=== PATIENT | female | born 1980 | race Caucasian/White ===

== ENCOUNTER 2018-11-21 10:21 | Inpatient (IN) | payer MEDICAID, OTHER ==
[~2018-11-21] VITALS: Ht 162.6 cm; Wt 107.5 kg
[~2018-11-21 10:21] MED LIST: ATOR10TA84 PO; METF-960 PO
[2018-11-21] MEDS ORDERED: ESCI10TA PO (11:12)
[2018-11-21] MEDS ORDERED: GABA-531 PO (11:12)
[2018-11-21 11:37] LABS: BASOPHILS % (AUTO) 0.5 % (0.0-2.0); EOSINOPHILS % (AUTO) 0.5 % (1.0-6.0); HEMATOCRIT 38.8 % (36-46); LYMPHOCYTES # (AUTO) 1.7 K/uL (1.0-4.8); LYMPHOCYTES % (AUTO) 15.3 % (22.0-44.0); MEAN CORPUSCULAR HEMOGLOBIN 30.2 pg (26.0-34.0); MEAN CORPUSCULAR HGB CONC 33.5 G/dL (31.0-37.0); MEAN CORPUSCULAR VOLUME 90 fL (80-100); MONOCYTES # (AUTO) 0.7 K/uL (0.1-1.0); NEUTROPHILS # (AUTO) 8.4 K/uL (1.8-7.7); NEUTROPHILS % (AUTO) 77.7 % (40.0-70.0); PLATELET COUNT (AUTO) 357 K/uL (150-450); RED BLOOD CELL COUNT(AUTO) 4.31 MIL/uL (4.00-5.20); RED CELL DISTRIBUTION WIDTH 14.1 % (11.5-14.5)
[2018-11-21 11:49] LABS: ANION GAP 13 mmol/L (8-16); CALCIUM, TOTAL 9.9 mg/dL (8.8-10.5); CARBON DIOXIDE 25 mmol/L (22-29); CHLORIDE 99 mmol/L (98-107); CREATININE 0.72 mg/dL (0.60-1.30); GLOMERULAR FILTR. RATE CALC > 60 mL/min (>60); GLUCOSE,RANDOM 164 mg/dL (70-110); POTASSIUM 4.2 mmol/L (3.5-5.1); SODIUM SERUM 137 mmol/L (136-145); UREA NITROGEN, BLOOD 11 mg/dL (7-18)
[2018-11-21 12:03] LABS: ALANINE AMINOTRANSFERASE 46 U/L (12-78); ALBUMIN 3.6 g/dL (3.4-5.0); ALKALINE PHOSPHATASE 85 U/L (46-116); ASPARTATE AMINOTRANSFERASE 17 U/L (15-37); BILIRUBIN,TOTAL 0.3 mg/dL (0.1-1.0); TOTAL PROTEIN, SERUM 7.9 g/dL (6.4-8.2)
[2018-11-21 13:31] LABS: AMPHET/METH SCREEN,URINE NEGATIVE (NEGATIVE); BARBITURATE SCREEN, URINE NEGATIVE (NEGATIVE); BENZODIAZEPINES SCREEN,URINE NEGATIVE (NEGATIVE); CANNABINOID SCREEN,URINE NEGATIVE (NEGATIVE); COCAINE SCREEN,URINE NEGATIVE (NEGATIVE); METHADONE SCREEN, URINE NEGATIVE (NEGATIVE); OPIATE SCREEN,URINE NEGATIVE (NEGATIVE)
[2018-11-21 13:33] LABS: PHENCYCLIDINE SCREEN,URINE NEGATIVE (NEGATIVE)
[2018-11-21 13:37] LABS: BILIRUBIN,URINE NEGATIVE (NEGATIVE); GLUCOSE, URINE (UA) 100 mg/dL (NEGATIVE); KETONES,URINE TRACE mg/dL (NEGATIVE); LEUKOCYTE ESTERASE ,URINE NEGATIVE (NEGATIVE); NITRATE,URINE NEGATIVE (NEGATIVE); OCCULT BLOOD,URINE NEGATIVE (NEGATIVE); PROTEIN,URINE NEGATIVE (NEGATIVE); UROBILINOGEN,URINE 0.2 mg/dL (<=1.0)
[2018-11-21 14:09] LABS: APPEARANCE,URINE HAZY (CLEAR)
[2018-11-21 14:18] LABS: BACTERIA,URINE None Seen /HPF (None Seen); RBC,URINE None Seen /HPF (0-2); SQUAMOUS EPITHELIAL CELL,UR Few /LPF (None Seen); WBC,URINE None Seen /HPF (0-5)
[2018-11-21] MEDS ORDERED: LORazepam 2 MG/ML VIAL ONE (16:51)
[2018-11-21] MEDS ORDERED: DiphenhydrAMINE HCL 50 MG/ML VIAL ONE (16:51)
[2018-11-21] MEDS ORDERED: HALOPERIDOL LACTATE 5 MG/ML VIAL ONE (16:51)
[2018-11-21] MEDS ORDERED: DiphenhydrAMINE HCL 50 MG/ML VIAL IM ONE (17:00)
[2018-11-21] MEDS ORDERED: LORazepam 2 MG/ML VIAL IM ONE (17:00)
[2018-11-21] MEDS ORDERED: HALOPERIDOL LACTATE 5 MG/ML VIAL IM ONE (17:00)
[2018-11-21 17:17] VITALS: BP 146/87
[2018-11-21] MEDS ORDERED: GLUCAGON,HUMAN RECOMBINANT 1 MG VIAL IM PRN (17:45)
[2018-11-21] MEDS: ATORVASTATIN CALCIUM 10 MG TABLET PO SCH (20:29)
[2018-11-21] MEDS: QUEtiapine FUMARATE 200 MG TABLET PO SCH (20:29)
[2018-11-21] MEDS: ZOLPIDEM TARTRATE 10 MG TABLET PO PRN (21:33)
[2018-11-22 04:16] VITALS: BP 140/82
[2018-11-22] MEDS: MetFORMIN HCL 500 MG TABLET PO SCH ×2 (06:43→17:16)
[2018-11-22] MEDS: HALOPERIDOL 5 MG TABLET PO PRN ×2 (10:48→17:16)
[2018-11-22] MEDS: LORazepam 2 MG TABLET PO PRN ×2 (10:48→17:17)
[2018-11-22 11:09] LABS: GLUCOMETER DEV NAME(LOC) BV3S.; GLUCOSE,POINT OF CARE 187 MG/DL (70-110)
[2018-11-22] MEDS: INSULIN LISPRO 100 UNITS/ML SQ PRN ×3 (12:09→21:49)
[2018-11-22 16:27] VITALS: BP 126/74
[2018-11-22] MEDS ORDERED: NICOTINE POLACRILEX 4 MG GUM CHEW PRN (17:30)
[2018-11-22] MEDS ORDERED: NICOTINE POLACRILEX 2 MG GUM CHEW PRN (17:45)
[2018-11-22 21:14] LABS: GLUCOMETER DEV NAME(LOC) BV3S.; GLUCOSE,POINT OF CARE 156 MG/DL (70-110)
[2018-11-22 21:14] LABS: GLUCOMETER DEV NAME(LOC) BV3S.; GLUCOSE,POINT OF CARE 192 MG/DL (70-110)
[2018-11-22] MEDS: ATORVASTATIN CALCIUM 10 MG TABLET PO SCH (21:27)
[2018-11-22] MEDS: QUEtiapine FUMARATE 200 MG TABLET PO SCH (21:27)
[2018-11-23 06:34] VITALS: BP 105/73
[2018-11-23] MEDS: MetFORMIN HCL 500 MG TABLET PO SCH ×2 (07:00→16:31)
[2018-11-23] MEDS: LORazepam 2 MG TABLET PO PRN ×2 (08:15→16:31)
[2018-11-23] MEDS: HALOPERIDOL 5 MG TABLET PO PRN ×2 (08:15→16:31)
[2018-11-23 08:32] VITALS: BP 113/76
[2018-11-23] MEDS: GuaiFENesin/D-METHORPHAN [SUGAR-FREE] 200-20MG/10 ML SYRUP UDCUP PO PRN ×2 (08:57→17:00)
[2018-11-23 09:18] LABS: CHOL/HDL RATIO 3.9 (3.9-5.7); THYROID STIMULATING HORMONE 1.16 uIU/mL (0.36-3.74)
[2018-11-23] MEDS ORDERED: NICOTINE POLACRILEX 4 MG GUM CHEW PRN (11:00)
[2018-11-23 16:30] VITALS: BP 124/79
[2018-11-23] MEDS: ATORVASTATIN CALCIUM 10 MG TABLET PO SCH (20:52)
[2018-11-23] MEDS: ZOLPIDEM TARTRATE 10 MG TABLET PO PRN (20:52)
[2018-11-23] MEDS: QUEtiapine FUMARATE 200 MG TABLET PO SCH (20:52)
[2018-11-24 02:15] VITALS: BP 136/82
[2018-11-24] MEDS: GuaiFENesin/D-METHORPHAN [SUGAR-FREE] 200-20MG/10 ML SYRUP UDCUP PO PRN ×2 (02:22→14:19)
[2018-11-24] MEDS: HALOPERIDOL 5 MG TABLET PO PRN ×3 (04:25→18:24)
[2018-11-24] MEDS: LORazepam 2 MG TABLET PO PRN ×3 (04:25→18:24)
[2018-11-24] MEDS ORDERED: NICOTINE POLACRILEX 2 MG GUM CHEW PRN (05:15)
[2018-11-24] MEDS: MetFORMIN HCL 500 MG TABLET PO SCH ×2 (07:02→18:06)
[2018-11-24] MEDS: INSULIN LISPRO 100 UNITS/ML SQ PRN ×2 (07:18→20:42)
[2018-11-24 07:19] LABS: GLUCOMETER DEV NAME(LOC) BV3S.; GLUCOSE,POINT OF CARE 157 MG/DL (70-110)
[2018-11-24 08:08] VITALS: BP 146/75
[2018-11-24] MEDS: NICOTINE POLACRILEX 4 MG GUM CHEW PRN ×2 (09:33→12:47)
[2018-11-24] MEDS: QUEtiapine FUMARATE 200 MG TABLET PO SCH ×2 (11:46→20:45)
[2018-11-24 12:24] LABS: GLUCOMETER DEV NAME(LOC) BV3S.; GLUCOSE,POINT OF CARE 132 MG/DL (70-110)
[2018-11-24 17:28] VITALS: BP 111/72
[2018-11-24 18:35] LABS: GLUCOMETER DEV NAME(LOC) BV3S.; GLUCOSE,POINT OF CARE 153 MG/DL (70-110)
[2018-11-24 20:34] LABS: GLUCOMETER DEV NAME(LOC) BV3S.; GLUCOSE,POINT OF CARE 148 MG/DL (70-110)
[2018-11-24] MEDS: ATORVASTATIN CALCIUM 10 MG TABLET PO SCH (20:45)
[2018-11-25 04:48] VITALS: BP 114/75
[2018-11-25] MEDS: NICOTINE POLACRILEX 4 MG GUM CHEW PRN ×5 (05:23→20:19)
[2018-11-25] MEDS: LORazepam 2 MG TABLET PO PRN ×2 (05:50→16:28)
[2018-11-25] MEDS: MetFORMIN HCL 500 MG TABLET PO SCH ×2 (06:16→16:51)
[2018-11-25 06:19] LABS: GLUCOMETER DEV NAME(LOC) BV3S.; GLUCOSE,POINT OF CARE 184 MG/DL (70-110)
[2018-11-25] MEDS: INSULIN LISPRO 100 UNITS/ML SQ PRN (06:42)
[2018-11-25 08:17] VITALS: BP 158/83
[2018-11-25] MEDS: QUEtiapine FUMARATE 200 MG TABLET PO SCH ×2 (09:07→20:19)
[2018-11-25 16:09] VITALS: BP 132/81
[2018-11-25 16:59] LABS: GLUCOMETER DEV NAME(LOC) BV3S.; GLUCOSE,POINT OF CARE 135 MG/DL (70-110)
[2018-11-25] MEDS: MAGNESIUM HYDROXIDE SUSPENSION 30 ML UDCUP PO PRN (19:22)
[2018-11-25] MEDS: ATORVASTATIN CALCIUM 10 MG TABLET PO SCH (20:19)
[2018-11-25] MEDS: GuaiFENesin/D-METHORPHAN [SUGAR-FREE] 200-20MG/10 ML SYRUP UDCUP PO PRN (20:47)
[2018-11-25 21:54] LABS: GLUCOMETER DEV NAME(LOC) BV3S.; GLUCOSE,POINT OF CARE 134 MG/DL (70-110)
[2018-11-25] MEDS: ZOLPIDEM TARTRATE 10 MG TABLET PO PRN (22:37)
[2018-11-26 05:50] VITALS: BP 105/72
[2018-11-26 06:14] LABS: GLUCOMETER DEV NAME(LOC) BV3S.; GLUCOSE,POINT OF CARE 178 MG/DL (70-110)
[2018-11-26] MEDS: MetFORMIN HCL 500 MG TABLET PO SCH ×2 (06:41→17:24)
[2018-11-26] MEDS: INSULIN LISPRO 100 UNITS/ML SQ PRN ×3 (06:44→21:17)
[2018-11-26] MEDS: NICOTINE POLACRILEX 4 MG GUM CHEW PRN ×3 (08:03→14:44)
[2018-11-26 08:08] VITALS: BP 115/69
[2018-11-26] MEDS: QUEtiapine FUMARATE 200 MG TABLET PO SCH ×2 (08:26→21:12)
[2018-11-26] MEDS: GuaiFENesin/D-METHORPHAN [SUGAR-FREE] 200-20MG/10 ML SYRUP UDCUP PO PRN ×2 (11:30→17:24)
[2018-11-26 11:44] LABS: GLUCOMETER DEV NAME(LOC) BV3S.; GLUCOSE,POINT OF CARE 109 MG/DL (70-110)
[2018-11-26 16:04] VITALS: BP 120/83
[2018-11-26 17:00] LABS: GLUCOMETER DEV NAME(LOC) BV3S.; GLUCOSE,POINT OF CARE 150 MG/DL (70-110)
[2018-11-26] MEDS: LORazepam 2 MG TABLET PO PRN (17:24)
[2018-11-26 20:44] LABS: GLUCOMETER DEV NAME(LOC) BV3S.; GLUCOSE,POINT OF CARE 165 MG/DL (70-110)
[2018-11-26] MEDS: ATORVASTATIN CALCIUM 10 MG TABLET PO SCH (21:12)
[2018-11-26] MEDS: MAGNESIUM HYDROXIDE SUSPENSION 30 ML UDCUP PO PRN (22:34)
[2018-11-27] MEDS: GuaiFENesin/D-METHORPHAN [SUGAR-FREE] 200-20MG/10 ML SYRUP UDCUP PO PRN (01:21)
[2018-11-27 06:06] VITALS: BP 123/70
[2018-11-27] MEDS: NICOTINE POLACRILEX 4 MG GUM CHEW PRN ×4 (06:09→16:58)
[2018-11-27 06:19] LABS: GLUCOMETER DEV NAME(LOC) BV3S.; GLUCOSE,POINT OF CARE 141 MG/DL (70-110)
[2018-11-27] MEDS: MetFORMIN HCL 500 MG TABLET PO SCH ×2 (06:32→16:57)
[2018-11-27] MEDS: INSULIN LISPRO 100 UNITS/ML SQ PRN ×2 (06:37→21:55)
[2018-11-27] MEDS: HALOPERIDOL 5 MG TABLET PO PRN ×2 (07:59→12:16)
[2018-11-27] MEDS: LORazepam 2 MG TABLET PO PRN ×2 (08:00→12:17)
[2018-11-27] MEDS: QUEtiapine FUMARATE 200 MG TABLET PO SCH ×2 (08:00→21:29)
[2018-11-27 08:06] VITALS: BP 115/57
[2018-11-27 11:55] LABS: GLUCOMETER DEV NAME(LOC) BV3S.; GLUCOSE,POINT OF CARE 140 MG/DL (70-110)
[2018-11-27 16:03] VITALS: BP 143/69
[2018-11-27 17:25] LABS: GLUCOMETER DEV NAME(LOC) BV3S.; GLUCOSE,POINT OF CARE 127 MG/DL (70-110)
[2018-11-27] MEDS: ZOLPIDEM TARTRATE 10 MG TABLET PO PRN (21:29)
[2018-11-27] MEDS: ATORVASTATIN CALCIUM 10 MG TABLET PO SCH (21:29)
[2018-11-27 21:42] LABS: GLUCOMETER DEV NAME(LOC) BV3S.; GLUCOSE,POINT OF CARE 144 MG/DL (70-110)
[2018-11-28 06:29] LABS: GLUCOMETER DEV NAME(LOC) BV3S.; GLUCOSE,POINT OF CARE 165 MG/DL (70-110)
[2018-11-28] MEDS: NICOTINE POLACRILEX 4 MG GUM CHEW PRN ×4 (06:43→18:03)
[2018-11-28] MEDS: MetFORMIN HCL 500 MG TABLET PO SCH ×2 (06:43→17:00)
[2018-11-28] MEDS: INSULIN LISPRO 100 UNITS/ML SQ PRN ×3 (06:46→17:36)
[2018-11-28 07:21] VITALS: BP 125/78
[2018-11-28] MEDS: LORazepam 2 MG TABLET PO PRN ×3 (08:17→17:00)
[2018-11-28] MEDS: HALOPERIDOL 5 MG TABLET PO PRN ×3 (08:17→18:05)
[2018-11-28 08:25] VITALS: BP 129/71
[2018-11-28] MEDS: QUEtiapine FUMARATE 200 MG TABLET PO SCH (08:39)
[2018-11-28] MEDS: GuaiFENesin/D-METHORPHAN [SUGAR-FREE] 200-20MG/10 ML SYRUP UDCUP PO PRN ×2 (08:47→21:17)
[2018-11-28] MEDS ORDERED: ACETAMINOPHEN 325 MG TABLET PO PRN (09:45)
[2018-11-28 11:14] LABS: GLUCOMETER DEV NAME(LOC) BV3S.; GLUCOSE,POINT OF CARE 147 MG/DL (70-110)
[2018-11-28] MEDS ORDERED: IBUPROFEN 600 MG TABLET PO PRN (11:30)
[2018-11-28 16:00] VITALS: BP 115/75
[2018-11-28 17:55] LABS: GLUCOMETER DEV NAME(LOC) BV3S.; GLUCOSE,POINT OF CARE 154 MG/DL (70-110)
[2018-11-28] MEDS: MAGNESIUM HYDROXIDE SUSPENSION 30 ML UDCUP PO PRN (20:24)
[2018-11-28] MEDS: ATORVASTATIN CALCIUM 10 MG TABLET PO SCH (20:27)
[2018-11-28] MEDS: QUEtiapine FUMARATE 300 MG TABLET PO SCH (20:27)
[2018-11-28] MEDS: ZOLPIDEM TARTRATE 10 MG TABLET PO PRN (21:17)
[2018-11-28 22:05] LABS: GLUCOMETER DEV NAME(LOC) BV3S.; GLUCOSE,POINT OF CARE 135 MG/DL (70-110)
[2018-11-29] MEDS: NICOTINE POLACRILEX 4 MG GUM CHEW PRN ×4 (03:49→20:47)
[2018-11-29] MEDS: LORazepam 2 MG TABLET PO PRN ×2 (03:49→23:18)
[2018-11-29] MEDS: GuaiFENesin/D-METHORPHAN [SUGAR-FREE] 200-20MG/10 ML SYRUP UDCUP PO PRN ×2 (03:49→17:53)
[2018-11-29 03:58] VITALS: BP 118/81
[2018-11-29] MEDS: MetFORMIN HCL 500 MG TABLET PO SCH ×2 (06:52→16:31)
[2018-11-29] MEDS: INSULIN LISPRO 100 UNITS/ML SQ PRN ×3 (06:57→17:23)
[2018-11-29 07:14] LABS: GLUCOMETER DEV NAME(LOC) BV3S.; GLUCOSE,POINT OF CARE 185 MG/DL (70-110)
[2018-11-29 08:08] VITALS: BP 102/56
[2018-11-29] MEDS: QUEtiapine FUMARATE 300 MG TABLET PO SCH ×2 (09:21→20:14)
[2018-11-29 11:09] LABS: GLUCOMETER DEV NAME(LOC) BV3S.; GLUCOSE,POINT OF CARE 152 MG/DL (70-110)
[2018-11-29 17:44] LABS: GLUCOMETER DEV NAME(LOC) BV3S.; GLUCOSE,POINT OF CARE 188 MG/DL (70-110)
[2018-11-29] MEDS: ATORVASTATIN CALCIUM 10 MG TABLET PO SCH (20:14)
[2018-11-29 20:39] LABS: GLUCOMETER DEV NAME(LOC) BV3S.; GLUCOSE,POINT OF CARE 135 MG/DL (70-110)
[2018-11-29] MEDS: MAGNESIUM HYDROXIDE SUSPENSION 30 ML UDCUP PO PRN (23:18)
[2018-11-30 00:19] VITALS: BP 117/79
[2018-11-30] MEDS: NICOTINE POLACRILEX 4 MG GUM CHEW PRN ×4 (01:11→21:00)
[2018-11-30] MEDS: MetFORMIN HCL 500 MG TABLET PO SCH ×2 (06:33→16:47)
[2018-11-30 06:50] LABS: GLUCOMETER DEV NAME(LOC) BV3S.; GLUCOSE,POINT OF CARE 126 MG/DL (70-110)
[2018-11-30] MEDS: LORazepam 2 MG TABLET PO PRN ×2 (08:07→20:24)
[2018-11-30] MEDS: QUEtiapine FUMARATE 300 MG TABLET PO SCH ×2 (08:07→20:12)
[2018-11-30 08:22] VITALS: BP 122/84
[2018-11-30] MEDS: HALOPERIDOL 5 MG TABLET PO PRN (09:58)
[2018-11-30 11:09] LABS: GLUCOMETER DEV NAME(LOC) BV3S.; GLUCOSE,POINT OF CARE 112 MG/DL (70-110)
[2018-11-30 16:31] VITALS: BP 121/69
[2018-11-30 18:20] LABS: GLUCOMETER DEV NAME(LOC) BV3S.; GLUCOSE,POINT OF CARE 135 MG/DL (70-110)
[2018-11-30] MEDS: ATORVASTATIN CALCIUM 10 MG TABLET PO SCH (20:12)
[2018-11-30 20:54] LABS: GLUCOMETER DEV NAME(LOC) BV3S.; GLUCOSE,POINT OF CARE 140 MG/DL (70-110)
[2018-11-30] MEDS: INSULIN LISPRO 100 UNITS/ML SQ PRN (22:52)
[2018-11-30 23:09] LABS: GLUCOMETER DEV NAME(LOC) BV3S.; GLUCOSE,POINT OF CARE 178 MG/DL (70-110)
[2018-12-01] VITALS: BP 115/77
[2018-12-01] MEDS: ZOLPIDEM TARTRATE 10 MG TABLET PO PRN ×2 (00:08→21:04)
[2018-12-01] MEDS: LORazepam 2 MG TABLET PO PRN ×2 (07:12→17:07)
[2018-12-01] MEDS: MetFORMIN HCL 500 MG TABLET PO SCH ×2 (07:12→17:07)
[2018-12-01] MEDS: INSULIN LISPRO 100 UNITS/ML SQ PRN ×4 (07:14→22:02)
[2018-12-01 07:24] LABS: GLUCOMETER DEV NAME(LOC) BV3S.; GLUCOSE,POINT OF CARE 187 MG/DL (70-110)
[2018-12-01] MEDS: QUEtiapine FUMARATE 300 MG TABLET PO SCH ×2 (08:19→21:04)
[2018-12-01 08:53] VITALS: BP 120/68
[2018-12-01] MEDS: NICOTINE POLACRILEX 4 MG GUM CHEW PRN ×2 (08:57→19:15)
[2018-12-01] MEDS: GuaiFENesin/D-METHORPHAN [SUGAR-FREE] 200-20MG/10 ML SYRUP UDCUP PO PRN (08:57)
[2018-12-01 12:30] LABS: GLUCOMETER DEV NAME(LOC) BV3S.; GLUCOSE,POINT OF CARE 145 MG/DL (70-110)
[2018-12-01] MEDS: HALOPERIDOL 5 MG TABLET PO PRN (12:55)
[2018-12-01 16:25] VITALS: BP 140/84
[2018-12-01 17:34] LABS: GLUCOMETER DEV NAME(LOC) BV3S.; GLUCOSE,POINT OF CARE 164 MG/DL (70-110)
[2018-12-01 20:59] LABS: GLUCOMETER DEV NAME(LOC) BV3S.; GLUCOSE,POINT OF CARE 156 MG/DL (70-110)
[2018-12-01] MEDS: ATORVASTATIN CALCIUM 10 MG TABLET PO SCH (21:04)
[2018-12-02] MEDS: NICOTINE POLACRILEX 4 MG GUM CHEW PRN ×3 (04:58→15:50)
[2018-12-02] MEDS: GuaiFENesin/D-METHORPHAN [SUGAR-FREE] 200-20MG/10 ML SYRUP UDCUP PO PRN (04:58)
[2018-12-02 05:47] VITALS: BP 109/62
[2018-12-02] MEDS: MetFORMIN HCL 500 MG TABLET PO SCH ×2 (07:01→17:10)
[2018-12-02] MEDS: INSULIN LISPRO 100 UNITS/ML SQ PRN ×4 (07:09→21:02)
[2018-12-02 07:19] LABS: GLUCOMETER DEV NAME(LOC) BV3S.; GLUCOSE,POINT OF CARE 178 MG/DL (70-110)
[2018-12-02 08:12] VITALS: BP 119/62
[2018-12-02] MEDS: HALOPERIDOL 5 MG TABLET PO PRN ×2 (08:25→15:51)
[2018-12-02] MEDS: LORazepam 2 MG TABLET PO PRN ×2 (08:25→20:43)
[2018-12-02] MEDS: QUEtiapine FUMARATE 300 MG TABLET PO SCH ×2 (08:25→20:43)
[2018-12-02 11:14] LABS: GLUCOMETER DEV NAME(LOC) BV3S.; GLUCOSE,POINT OF CARE 185 MG/DL (70-110)
[2018-12-02 17:09] LABS: GLUCOMETER DEV NAME(LOC) BV3S.; GLUCOSE,POINT OF CARE 162 MG/DL (70-110)
[2018-12-02 17:30] VITALS: BP 133/81
[2018-12-02] MEDS: ATORVASTATIN CALCIUM 10 MG TABLET PO SCH (20:43)
[2018-12-02 21:32] LABS: GLUCOMETER DEV NAME(LOC) BV3S.; GLUCOSE,POINT OF CARE 166 MG/DL (70-110)
[2018-12-03 00:19] VITALS: BP 125/86
[2018-12-03] MEDS: HALOPERIDOL 5 MG TABLET PO PRN ×3 (03:07→21:13)
[2018-12-03] MEDS: LORazepam 2 MG TABLET PO PRN ×3 (03:07→21:13)
[2018-12-03] MEDS: NICOTINE POLACRILEX 4 MG GUM CHEW PRN ×2 (03:07→08:39)
[2018-12-03 06:24] LABS: GLUCOMETER DEV NAME(LOC) BV3S.; GLUCOSE,POINT OF CARE 158 MG/DL (70-110)
[2018-12-03] MEDS: MetFORMIN HCL 500 MG TABLET PO SCH ×2 (06:47→17:09)
[2018-12-03] MEDS: INSULIN LISPRO 100 UNITS/ML SQ PRN ×3 (06:51→21:53)
[2018-12-03 08:09] VITALS: BP 125/80
[2018-12-03] MEDS: QUEtiapine FUMARATE 300 MG TABLET PO SCH ×2 (08:52→20:09)
[2018-12-03] MEDS: DIVALPROEX SODIUM 500 MG DR TABLET PO SCH ×2 (10:00→20:09)
[2018-12-03 16:39] VITALS: BP 120/76
[2018-12-03 17:20] LABS: GLUCOMETER DEV NAME(LOC) BV3S.; GLUCOSE,POINT OF CARE 188 MG/DL (70-110)
[2018-12-03] MEDS: ATORVASTATIN CALCIUM 10 MG TABLET PO SCH (20:10)
[2018-12-03] MEDS: ZOLPIDEM TARTRATE 10 MG TABLET PO PRN (21:51)
[2018-12-04 00:18] VITALS: BP 105/60
[2018-12-04 00:54] LABS: GLUCOMETER DEV NAME(LOC) BV3S.; GLUCOSE,POINT OF CARE 158 MG/DL (70-110)
[2018-12-04] MEDS: HALOPERIDOL 5 MG TABLET PO PRN ×3 (01:15→18:24)
[2018-12-04] MEDS: LORazepam 2 MG TABLET PO PRN ×4 (01:15→23:44)
[2018-12-04] MEDS: NICOTINE POLACRILEX 4 MG GUM CHEW PRN ×3 (06:02→14:08)
[2018-12-04 06:20] LABS: GLUCOMETER DEV NAME(LOC) BV3S.; GLUCOSE,POINT OF CARE 152 MG/DL (70-110)
[2018-12-04] MEDS: MetFORMIN HCL 500 MG TABLET PO SCH ×2 (06:35→16:22)
[2018-12-04] MEDS: INSULIN LISPRO 100 UNITS/ML SQ PRN ×4 (06:36→21:15)
[2018-12-04 08:16] VITALS: BP 140/85
[2018-12-04] MEDS: DIVALPROEX SODIUM 500 MG DR TABLET PO SCH ×2 (08:45→21:12)
[2018-12-04] MEDS: QUEtiapine FUMARATE 300 MG TABLET PO SCH ×2 (08:45→21:11)
[2018-12-04 11:15] LABS: GLUCOMETER DEV NAME(LOC) BV3S.; GLUCOSE,POINT OF CARE 162 MG/DL (70-110)
[2018-12-04 16:32] VITALS: BP 131/73
[2018-12-04 17:35] LABS: GLUCOMETER DEV NAME(LOC) BV3S.; GLUCOSE,POINT OF CARE 163 MG/DL (70-110)
[2018-12-04] MEDS: ATORVASTATIN CALCIUM 10 MG TABLET PO SCH (21:11)
[2018-12-04 21:27] LABS: GLUCOMETER DEV NAME(LOC) BV3N.; GLUCOSE,POINT OF CARE 165 MG/DL (70-110)
[2018-12-04] MEDS: ZOLPIDEM TARTRATE 10 MG TABLET PO PRN (22:23)
[2018-12-05 00:18] VITALS: BP 103/81
[2018-12-05 06:25] LABS: GLUCOMETER DEV NAME(LOC) BV3S.; GLUCOSE,POINT OF CARE 142 MG/DL (70-110)
[2018-12-05] MEDS: MetFORMIN HCL 500 MG TABLET PO SCH (06:41)
[2018-12-05] MEDS: INSULIN LISPRO 100 UNITS/ML SQ PRN (06:43)
[2018-12-05 08:10] VITALS: BP 100/50
[2018-12-05] MEDS: QUEtiapine FUMARATE 300 MG TABLET PO SCH (08:19)
[2018-12-05] MEDS: DIVALPROEX SODIUM 500 MG DR TABLET PO SCH (08:19)
[2018-12-05] MEDS: NICOTINE POLACRILEX 4 MG GUM CHEW PRN (08:20)
[2018-12-05] MEDS ORDERED: QUET300T18 PO (09:16)
[2018-12-05] MEDS ORDERED: DIVA-78 PO ×2 (09:16→09:43)
[2018-12-05] MEDS ORDERED: QUET300T2 PO (09:43)
[2018-12-05 11:50] LABS: GLUCOMETER DEV NAME(LOC) BV3S.; GLUCOSE,POINT OF CARE 127 MG/DL (70-110)
== END 2018-12-05 12:15 | disposition home or self-care (01) | DRG 750 ==
LOC: EMS 10:21 → B2S 14:25 → EMS 15:00 → B3A 18:59
DX: F25.0 Schizoaffective disorder, bipolar type (principal); E11.9 Type 2 diabetes mellitus without complications; E78.5 Hyperlipidemia, unspecified; F60.0 Paranoid personality disorder; F41.9 Anxiety disorder, unspecified; F17.210 Nicotine dependence, cigarettes, uncomplicated; Z79.899 Other long term (current) drug therapy
CPT/HCPCS: 80074; 83036; 84443; G0480; J1200; J1630; J2060

== ENCOUNTER 2019-01-24 02:29 | Inpatient (IN) | payer MEDICAID, OTHER ==
[~2019-01-24] VITALS: Ht 165.1 cm; Wt 106.6 kg
[~2019-01-24 02:29] MED LIST changes: +DIVA-78 PO; +QUET300T18 PO; +QUET300T2 PO
[2019-01-24 04:14] LABS: EOSINOPHILS % (AUTO) 3.4 % (1.0-6.0); HEMATOCRIT 41.7 % (36-46); HEMOGLOBIN 13.9 g/dL (12.0-16.0); LYMPHOCYTES # (AUTO) 3.2 K/uL (1.0-4.8); LYMPHOCYTES % (AUTO) 34.2 % (22.0-44.0); MEAN CORPUSCULAR HEMOGLOBIN 30.3 pg (26.0-34.0); MEAN CORPUSCULAR HGB CONC 33.4 G/dL (31.0-37.0); MEAN CORPUSCULAR VOLUME 91 fL (80-100); MONOCYTES # (AUTO) 0.6 K/uL (0.1-1.0); MONOCYTES % (AUTO) 6.6 % (2.0-9.0); NEUTROPHILS # (AUTO) 5.1 K/uL (1.8-7.7); NEUTROPHILS % (AUTO) 54.8 % (40.0-70.0); PLATELET COUNT (AUTO) 391 K/uL (150-450); RED BLOOD CELL COUNT(AUTO) 4.59 MIL/uL (4.00-5.20); RED CELL DISTRIBUTION WIDTH 13.6 % (11.5-14.5)
[2019-01-24 04:19] LABS: AMPHET/METH SCREEN,URINE NEGATIVE (NEGATIVE); BARBITURATE SCREEN, URINE NEGATIVE (NEGATIVE); BENZODIAZEPINES SCREEN,URINE NEGATIVE (NEGATIVE); CANNABINOID SCREEN,URINE NEGATIVE (NEGATIVE); COCAINE SCREEN,URINE NEGATIVE (NEGATIVE); METHADONE SCREEN, URINE NEGATIVE (NEGATIVE); OPIATE SCREEN,URINE NEGATIVE (NEGATIVE)
[2019-01-24 04:19] LABS: ANION GAP 7 mmol/L (8-16); CALCIUM, TOTAL 9.2 mg/dL (8.8-10.5); CARBON DIOXIDE 32 mmol/L (22-29); CHLORIDE 101 mmol/L (98-107); CREATININE 0.84 mg/dL (0.60-1.30); GLOMERULAR FILTR. RATE CALC > 60 mL/min (>60); GLUCOSE,RANDOM 173 mg/dL (70-110); POTASSIUM 4.7 mmol/L (3.5-5.1); SODIUM SERUM 140 mmol/L (136-145); UREA NITROGEN, BLOOD 12 mg/dL (7-18)
[2019-01-24 04:21] LABS: PHENCYCLIDINE SCREEN,URINE NEGATIVE (NEGATIVE)
[2019-01-24 04:29] LABS: GLUCOSE,POINT OF CARE 165 MG/DL (70-110)
[2019-01-24 04:33] LABS: ALANINE AMINOTRANSFERASE 20 U/L (12-78); ALBUMIN 3.6 g/dL (3.4-5.0); ALKALINE PHOSPHATASE 82 U/L (46-116); ASPARTATE AMINOTRANSFERASE 7 U/L (15-37); BILIRUBIN,TOTAL 0.4 mg/dL (0.1-1.0); HCG,QUANTITATIVE < 1 mIU/mL (0-6); TOTAL PROTEIN, SERUM 8.2 g/dL (6.4-8.2)
[2019-01-24] MEDS ORDERED: LORazepam 2 MG TABLET PO ONE (04:45)
[2019-01-24] MEDS ORDERED: HALOPERIDOL 5 MG TABLET PO ONE (04:45)
[2019-01-24] MEDS ORDERED: DiphenhydrAMINE HCL 50 MG/ML VIAL IM ONE (05:00)
[2019-01-24 09:29] LABS: GLUCOMETER DEV NAME(LOC) BV3S.; GLUCOSE,POINT OF CARE 147 MG/DL (70-110)
[2019-01-24] MEDS ORDERED: ALBUTEROL SULFATE HFA 90 MCG/PUFF 8 GM INHALER IH PRN (09:30)
[2019-01-24] MEDS ORDERED: CloNIDine HCL 0.1 MG TABLET PO PRN (09:30)
[2019-01-24] MEDS ORDERED: DOCUSATE SODIUM 100 MG CAPSULE PO PRN (09:30)
[2019-01-24] MEDS ORDERED: NICOTINE 14 MG/24 HOUR PATCH TD PRN (09:30)
[2019-01-24] MEDS ORDERED: ONDANSETRON HCL 4 MG TABLET PO PRN (09:30)
[2019-01-24] MEDS ORDERED: GuaiFENesin/D-METHORPHAN [SUGAR-FREE] 200-20MG/10 ML SYRUP UDCUP PO PRN (09:30)
[2019-01-24] MEDS ORDERED: PETROLATUM,WHITE 28 GM JELLY TP PRN (09:30)
[2019-01-24] MEDS ORDERED: MAGNESIUM HYDROXIDE SUSPENSION 30 ML UDCUP PO PRN (09:30)
[2019-01-24] MEDS ORDERED: MAG HYDROX/AL HYDROX/SIMETH ES 30 ML SUSPENSION UDCUP PO PRN (09:30)
[2019-01-24] MEDS ORDERED: LOPERAMIDE HCL 2 MG CAPSULE PO PRN (09:30)
[2019-01-24] MEDS ORDERED: ACETAMINOPHEN 325 MG TABLET PO PRN (09:30)
[2019-01-24 10:15] VITALS: BP 125/75
[2019-01-24] MEDS ORDERED: -PHARMACY VACCINE NOTE- MISC ONE (12:00)
[2019-01-24] MEDS: OLANZapine 5 MG TABLET PO SCH ×2 (13:17→20:15)
[2019-01-24] MEDS: DIVALPROEX SODIUM 500 MG DR TABLET PO SCH ×2 (13:17→20:15)
[2019-01-24] MEDS: LORazepam 2 MG TABLET PO PRN ×2 (15:26→15:52)
[2019-01-24] MEDS: HALOPERIDOL 5 MG TABLET PO PRN (15:51)
[2019-01-24 16:22] VITALS: BP 102/62
[2019-01-24] MEDS: MetFORMIN HCL 500 MG TABLET PO SCH (17:17)
[2019-01-24] MEDS: HydrOXYzine PAMOATE 50 MG CAPSULE PO SCH (20:46)
[2019-01-24] MEDS: ATORVASTATIN CALCIUM 10 MG TABLET PO SCH (20:47)
[2019-01-25 00:05] VITALS: BP 112/78
[2019-01-25] MEDS: ZOLPIDEM TARTRATE 10 MG TABLET PO PRN ×2 (00:14→21:02)
[2019-01-25] MEDS: MetFORMIN HCL 500 MG TABLET PO SCH ×2 (06:46→16:01)
[2019-01-25 07:58] LABS: BASOPHILS % (AUTO) 0.7 % (0.0-2.0); EOSINOPHILS % (AUTO) 3.1 % (1.0-6.0); HEMATOCRIT 41.6 % (36-46); HEMOGLOBIN 13.6 g/dL (12.0-16.0); LYMPHOCYTES # (AUTO) 2.9 K/uL (1.0-4.8); LYMPHOCYTES % (AUTO) 33.8 % (22.0-44.0); MEAN CORPUSCULAR HEMOGLOBIN 29.8 pg (26.0-34.0); MEAN CORPUSCULAR HGB CONC 32.7 G/dL (31.0-37.0); MEAN CORPUSCULAR VOLUME 91 fL (80-100); MONOCYTES # (AUTO) 0.5 K/uL (0.1-1.0); NEUTROPHILS # (AUTO) 4.9 K/uL (1.8-7.7); NEUTROPHILS % (AUTO) 56.4 % (40.0-70.0); PLATELET COUNT (AUTO) 386 K/uL (150-450); RED BLOOD CELL COUNT(AUTO) 4.55 MIL/uL (4.00-5.20); RED CELL DISTRIBUTION WIDTH 13.7 % (11.5-14.5)
[2019-01-25 08:15] LABS: HEMOGLOBIN A1C 7.7 % (4.5-6.2)
[2019-01-25 08:28] LABS: ALANINE AMINOTRANSFERASE 19 U/L (12-78); ALBUMIN 3.1 g/dL (3.4-5.0); ALKALINE PHOSPHATASE 68 U/L (46-116); ANION GAP 6 mmol/L (8-16); ASPARTATE AMINOTRANSFERASE 8 U/L (15-37); BILIRUBIN,TOTAL 0.3 mg/dL (0.1-1.0); CARBON DIOXIDE 30 mmol/L (22-29); CHLORIDE 101 mmol/L (98-107); CHOL/HDL RATIO 5.1 (3.9-5.7); CHOLESTEROL 224 mg/dL (131-200); CREATININE 0.71 mg/dL (0.60-1.30); GLOMERULAR FILTR. RATE CALC > 60 mL/min (>60); GLUCOSE,RANDOM 148 mg/dL (70-110); HDL CHOLESTEROL 44 mg/dL (40-60); LDL CHOL (CALC.) 134 mg/dL (0-130); POTASSIUM 4.3 mmol/L (3.5-5.1); SODIUM SERUM 137 mmol/L (136-145); TOTAL PROTEIN, SERUM 7.6 g/dL (6.4-8.2); TRIGLYCERIDES 228 mg/dL (15-150); UREA NITROGEN, BLOOD 14 mg/dL (7-18)
[2019-01-25 08:30] VITALS: BP 130/70
[2019-01-25] MEDS: DIVALPROEX SODIUM 500 MG DR TABLET PO SCH ×2 (08:50→20:21)
[2019-01-25] MEDS: OLANZapine 5 MG TABLET PO SCH ×2 (08:50→20:21)
[2019-01-25] MEDS: HALOPERIDOL 5 MG TABLET PO PRN ×2 (09:46→16:02)
[2019-01-25] MEDS: LORazepam 2 MG TABLET PO PRN ×2 (09:46→16:01)
[2019-01-25] MEDS: IBUPROFEN 400 MG TABLET PO PRN (10:03)
[2019-01-25] MEDS ORDERED: FLUTICASONE PROPIONATE 50 MCG/SPRAY 16 GM NASAL SPRAY NASAL SCH (12:45)
[2019-01-25] MEDS: OMEGA-3/DHA/EPA/FISH OIL 1,000 MG CAPSULE PO SCH (13:56)
[2019-01-25] MEDS: FLUTICASONE PROPIONATE 50 MCG/SPRAY 16 GM NASAL SPRAY NASAL SCH (16:00)
[2019-01-25 16:12] VITALS: BP 139/70
[2019-01-25] MEDS: ATORVASTATIN CALCIUM 10 MG TABLET PO SCH (20:21)
[2019-01-25] MEDS: HydrOXYzine PAMOATE 50 MG CAPSULE PO SCH (20:21)
[2019-01-26 02:15] VITALS: BP 117/86
[2019-01-26] MEDS: MetFORMIN HCL 500 MG TABLET PO SCH ×2 (06:58→16:56)
[2019-01-26 08:11] VITALS: BP 108/77
[2019-01-26] MEDS: DIVALPROEX SODIUM 500 MG DR TABLET PO SCH ×2 (09:00→20:31)
[2019-01-26] MEDS: OLANZapine 5 MG TABLET PO SCH ×2 (09:00→20:31)
[2019-01-26] MEDS: OMEGA-3/DHA/EPA/FISH OIL 1,000 MG CAPSULE PO SCH (09:01)
[2019-01-26] MEDS: FLUTICASONE PROPIONATE 50 MCG/SPRAY 16 GM NASAL SPRAY NASAL SCH (09:01)
[2019-01-26] MEDS: HALOPERIDOL 5 MG TABLET PO PRN ×2 (09:19→18:21)
[2019-01-26] MEDS: LORazepam 2 MG TABLET PO PRN ×2 (09:19→18:21)
[2019-01-26 16:12] VITALS: BP 127/61
[2019-01-26] MEDS: HydrOXYzine PAMOATE 50 MG CAPSULE PO SCH (20:31)
[2019-01-26] MEDS: ATORVASTATIN CALCIUM 10 MG TABLET PO SCH (20:31)
[2019-01-27 03:05] VITALS: BP 132/78
[2019-01-27] MEDS: LORazepam 2 MG TABLET PO PRN ×3 (04:03→17:12)
[2019-01-27] MEDS: HALOPERIDOL 5 MG TABLET PO PRN ×3 (04:03→17:12)
[2019-01-27] MEDS: MetFORMIN HCL 500 MG TABLET PO SCH ×2 (06:47→17:12)
[2019-01-27] MEDS: OMEGA-3/DHA/EPA/FISH OIL 1,000 MG CAPSULE PO SCH (08:13)
[2019-01-27] MEDS: OLANZapine 5 MG TABLET PO SCH ×2 (08:13→21:16)
[2019-01-27] MEDS: DIVALPROEX SODIUM 500 MG DR TABLET PO SCH ×2 (08:13→21:16)
[2019-01-27 08:37] VITALS: BP 116/77
[2019-01-27] MEDS: FLUTICASONE PROPIONATE 50 MCG/SPRAY 16 GM NASAL SPRAY NASAL SCH (08:37)
[2019-01-27] MEDS: NICOTINE POLACRILEX 2 MG LOZENGE PO PRN (10:57)
[2019-01-27 16:25] VITALS: BP 128/70
[2019-01-27] MEDS: ATORVASTATIN CALCIUM 10 MG TABLET PO SCH (21:16)
[2019-01-27] MEDS: HydrOXYzine PAMOATE 50 MG CAPSULE PO SCH (21:16)
[2019-01-28 00:05] VITALS: BP 124/82
[2019-01-28 01:55] VITALS: BP 128/80
[2019-01-28] MEDS: ZOLPIDEM TARTRATE 10 MG TABLET PO PRN (01:55)
[2019-01-28] MEDS: IBUPROFEN 400 MG TABLET PO PRN (01:55)
[2019-01-28] MEDS: MetFORMIN HCL 500 MG TABLET PO SCH ×2 (06:44→16:13)
[2019-01-28] MEDS: FLUTICASONE PROPIONATE 50 MCG/SPRAY 16 GM NASAL SPRAY NASAL SCH (08:16)
[2019-01-28] MEDS: DIVALPROEX SODIUM 500 MG DR TABLET PO SCH ×2 (08:17→20:42)
[2019-01-28] MEDS: OMEGA-3/DHA/EPA/FISH OIL 1,000 MG CAPSULE PO SCH (08:17)
[2019-01-28] MEDS: OLANZapine 5 MG TABLET PO SCH (08:17)
[2019-01-28 08:30] VITALS: BP 106/62
[2019-01-28 11:20] VITALS: BP 134/74
[2019-01-28] MEDS: LORazepam 2 MG TABLET PO PRN (13:18)
[2019-01-28] MEDS: HALOPERIDOL 5 MG TABLET PO PRN (13:18)
[2019-01-28] MEDS: NICOTINE POLACRILEX 2 MG LOZENGE PO PRN (14:20)
[2019-01-28] MEDS: OLANZapine 10 MG TABLET PO SCH (20:42)
[2019-01-28] MEDS: HydrOXYzine PAMOATE 50 MG CAPSULE PO SCH (20:42)
[2019-01-28] MEDS: ATORVASTATIN CALCIUM 10 MG TABLET PO SCH (20:43)
[2019-01-28] MEDS ORDERED: SIMVASTATIN 10 MG TABLET PO SCH (21:00)
[2019-01-29] MEDS: ZOLPIDEM TARTRATE 10 MG TABLET PO PRN (02:29)
[2019-01-29 02:31] VITALS: BP 128/64
[2019-01-29] MEDS: MetFORMIN HCL 500 MG TABLET PO SCH ×2 (06:45→16:45)
[2019-01-29] MEDS: OLANZapine 10 MG TABLET PO SCH ×2 (08:35→20:45)
[2019-01-29] MEDS: FLUTICASONE PROPIONATE 50 MCG/SPRAY 16 GM NASAL SPRAY NASAL SCH (08:35)
[2019-01-29] MEDS: OMEGA-3/DHA/EPA/FISH OIL 1,000 MG CAPSULE PO SCH (08:35)
[2019-01-29] MEDS: DIVALPROEX SODIUM 500 MG DR TABLET PO SCH ×2 (08:35→20:45)
[2019-01-29] MEDS: NICOTINE POLACRILEX 2 MG LOZENGE PO PRN (08:36)
[2019-01-29] MEDS: HALOPERIDOL 5 MG TABLET PO PRN ×2 (10:07→14:38)
[2019-01-29] MEDS: LORazepam 2 MG TABLET PO PRN ×2 (10:07→14:38)
[2019-01-29 11:03] VITALS: BP 125/76
[2019-01-29 17:26] VITALS: BP 109/71
[2019-01-29] MEDS: HydrOXYzine PAMOATE 50 MG CAPSULE PO SCH (20:45)
[2019-01-29] MEDS: ATORVASTATIN CALCIUM 10 MG TABLET PO SCH (20:46)
[2019-01-30] MEDS: MetFORMIN HCL 500 MG TABLET PO SCH ×2 (07:05→16:51)
[2019-01-30] MEDS: LORazepam 2 MG TABLET PO PRN ×2 (08:40→22:07)
[2019-01-30] MEDS: DIVALPROEX SODIUM 500 MG DR TABLET PO SCH ×2 (08:40→21:11)
[2019-01-30] MEDS: OMEGA-3/DHA/EPA/FISH OIL 1,000 MG CAPSULE PO SCH (08:40)
[2019-01-30] MEDS: FLUTICASONE PROPIONATE 50 MCG/SPRAY 16 GM NASAL SPRAY NASAL SCH (08:40)
[2019-01-30] MEDS: HALOPERIDOL 5 MG TABLET PO PRN (08:40)
[2019-01-30] MEDS: OLANZapine 10 MG TABLET PO SCH ×2 (08:40→21:11)
[2019-01-30 11:00] VITALS: BP 120/72
[2019-01-30 17:25] VITALS: BP 133/71
[2019-01-30] MEDS ORDERED: FERROUS SULFATE 325 MG EC TABLET PO SCH (17:30)
[2019-01-30] MEDS: HydrOXYzine PAMOATE 50 MG CAPSULE PO SCH (21:11)
[2019-01-30] MEDS: CITALOPRAM HYDROBROMIDE 10 MG TABLET PO SCH (21:11)
[2019-01-30] MEDS: ATORVASTATIN CALCIUM 10 MG TABLET PO SCH (21:11)
[2019-01-30] MEDS: ZOLPIDEM TARTRATE 10 MG TABLET PO PRN (22:06)
[2019-01-31] MEDS: LORazepam 2 MG TABLET PO PRN (05:25)
[2019-01-31] MEDS: HALOPERIDOL 5 MG TABLET PO PRN (05:59)
[2019-01-31] MEDS: MetFORMIN HCL 500 MG TABLET PO SCH ×2 (07:01→16:52)
[2019-01-31] MEDS: DIVALPROEX SODIUM 500 MG DR TABLET PO SCH ×2 (08:25→21:03)
[2019-01-31] MEDS: OLANZapine 10 MG TABLET PO SCH ×2 (08:25→21:03)
[2019-01-31] MEDS: OMEGA-3/DHA/EPA/FISH OIL 1,000 MG CAPSULE PO SCH (08:26)
[2019-01-31] MEDS: FLUTICASONE PROPIONATE 50 MCG/SPRAY 16 GM NASAL SPRAY NASAL SCH (08:27)
[2019-01-31 08:37] VITALS: BP 122/67
[2019-01-31] MEDS: NICOTINE POLACRILEX 2 MG LOZENGE PO PRN (09:03)
[2019-01-31 09:42] VITALS: BP 122/67
[2019-01-31 19:42] VITALS: BP 129/74
[2019-01-31] MEDS: ZOLPIDEM TARTRATE 10 MG TABLET PO PRN (21:03)
[2019-01-31] MEDS: ATORVASTATIN CALCIUM 10 MG TABLET PO SCH (21:03)
[2019-01-31] MEDS: HydrOXYzine PAMOATE 50 MG CAPSULE PO SCH (21:03)
[2019-01-31] MEDS: CITALOPRAM HYDROBROMIDE 10 MG TABLET PO SCH (21:03)
[2019-02-01] MEDS: MetFORMIN HCL 500 MG TABLET PO SCH ×2 (06:40→16:59)
[2019-02-01] MEDS: DIVALPROEX SODIUM 500 MG DR TABLET PO SCH ×2 (08:24→20:28)
[2019-02-01] MEDS: OLANZapine 10 MG TABLET PO SCH ×2 (08:24→20:28)
[2019-02-01] MEDS: OMEGA-3/DHA/EPA/FISH OIL 1,000 MG CAPSULE PO SCH (08:26)
[2019-02-01] MEDS: FLUTICASONE PROPIONATE 50 MCG/SPRAY 16 GM NASAL SPRAY NASAL SCH (08:27)
[2019-02-01] MEDS: NICOTINE POLACRILEX 2 MG LOZENGE PO PRN ×2 (09:11→17:00)
[2019-02-01 09:23] VITALS: BP 157/86
[2019-02-01] MEDS: CITALOPRAM HYDROBROMIDE 10 MG TABLET PO SCH (20:27)
[2019-02-01] MEDS: ATORVASTATIN CALCIUM 10 MG TABLET PO SCH (20:28)
[2019-02-01] MEDS: HydrOXYzine PAMOATE 50 MG CAPSULE PO SCH (20:28)
[2019-02-02] MEDS: LORazepam 2 MG TABLET PO PRN ×2 (03:02→16:49)
[2019-02-02] MEDS: HALOPERIDOL 5 MG TABLET PO PRN ×2 (03:02→16:49)
[2019-02-02] MEDS: MetFORMIN HCL 500 MG TABLET PO SCH ×2 (06:57→16:39)
[2019-02-02] MEDS: NICOTINE POLACRILEX 2 MG LOZENGE PO PRN ×2 (08:41→15:06)
[2019-02-02] MEDS: OMEGA-3/DHA/EPA/FISH OIL 1,000 MG CAPSULE PO SCH (08:42)
[2019-02-02] MEDS: OLANZapine 10 MG TABLET PO SCH (08:42)
[2019-02-02] MEDS: FLUTICASONE PROPIONATE 50 MCG/SPRAY 16 GM NASAL SPRAY NASAL SCH (08:42)
[2019-02-02] MEDS: DIVALPROEX SODIUM 500 MG DR TABLET PO SCH (08:42)
[2019-02-02 11:07] VITALS: BP 143/84
[2019-02-02] MEDS ORDERED: OLAN10TA3 PO (15:00)
[2019-02-02] MEDS ORDERED: HYDR50CA10 PO (15:02)
[2019-02-02] MEDS ORDERED: CITA10TA68 PO (15:03)
[2019-02-02] MEDS ORDERED: DIVA-78 PO (15:03)
[2019-02-02] MEDS ORDERED: ATOR10TA84 PO (15:06)
[2019-02-02] MEDS ORDERED: METF-960 PO (15:08)
[2019-02-02] MEDS ORDERED: FLUT16H NASAL (15:08)
[2019-02-02] MEDS ORDERED: OMEG-135 PO (15:11)
== END 2019-02-02 19:54 | disposition home or self-care (01) | DRG 750 ==
LOC: EMS 02:32 → B3A 05:48 → 3EC 01-28 11:00
PROVIDERS: ADMIT Psychiatry & Neurology Psychiatry; ATTEND Psychiatry & Neurology Psychiatry
DX: F25.0 Schizoaffective disorder, bipolar type (principal); E11.9 Type 2 diabetes mellitus without complications; Z59.0 Homelessness; E66.9 Obesity, unspecified; E78.5 Hyperlipidemia, unspecified; F41.9 Anxiety disorder, unspecified; G47.33 Obstructive sleep apnea (adult) (pediatric); Z68.39 Body mass index [BMI] 39.0-39.9, adult; F17.210 Nicotine dependence, cigarettes, uncomplicated
CPT/HCPCS: 83036; 84443; 87081; 94660; G0480; J1200

== ENCOUNTER 2019-05-25 20:04 | Emergency (ER) | payer MEDICAID ==
[~2019-05-25] VITALS: Ht 165.1 cm; Wt 106.8 kg
[~2019-05-25 20:04] MED LIST changes: +CITA10TA68 PO; +FLUT16H NASAL; +HYDR50CA9 PO; +OLAN10TA3 PO; +OMEG-135 PO; -QUET300T18 PO; -QUET300T2 PO
[2019-05-25 21:05] VITALS: BP 114/92
[2019-05-25] MEDS ORDERED: GABA-531 PO (21:11)
[2019-05-25 21:20] LABS: GLUCOSE,POINT OF CARE 123 MG/DL (70-110)
== END 2019-05-26 | disposition left against medical advice (07) ==
LOC: EMS 20:05
DX: R45.851 Suicidal ideations (principal); Z53.21 Procedure and treatment not carried out due to patient leaving prior to being seen by health care provider